=== PATIENT | female | born 2000 | race Caucasian/White ===

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

== ENCOUNTER 2023-04-18 22:00 | Emergency (ER) | payer BC ==
[~2023-04-18] VITALS: Ht 167.6 cm; Wt 68.6 kg
[~2023-04-18 22:00] MED LIST: PREDNISONE20 MG PO
[2023-04-18 22:05] VITALS: TEMP 98.4
[2023-04-18] MEDS ORDERED: Mag/Al Hydrox/Simeth Susp 30 ML CUP PO ONE (22:30)
[2023-04-18] MEDS ORDERED: Acetaminophen Oral Susp 325 MG/10.15 ML UD PO ONE (22:30)
[2023-04-18] MEDS ORDERED: Ketorolac 15 MG/ML VIAL IV ONE (22:30)
[2023-04-18] MEDS ORDERED: NS 1,000 ML IV ONE (22:30)
[2023-04-18 22:33] LABS: BASO % 0.1 % (0.0-2.0); EOS % 0.1 % (0.0-4.0); GRAN # 5.9 K/mm3 (1.4-6.5); GRAN % 84.9 % (42.2-75.2); HEMOGLOBIN 12.7 g/dl (12.5-16.0); LYMPH # 0.6 K/mm3 (1.2-3.4); LYMPH % 8.6 % (20.0-51.0); MEAN CELL VOLUME 84 fl (80.0-100.0); MEAN CORPUSCULAR HEMOGLOBIN 30 pg (27-31); MEAN CORPUSCULAR HGB CONC 36 g/dl (33.0-37.0); MEAN PLATELET VOLUME 11.5 fl (7.4-10.4); MONO # 0.4 K/mm3 (0.1-0.6); PLATELET COUNT 187 K/mm3 (130-400); RED BLOOD COUNT 4.18 M/mm3 (4.10-5.30); REDCELL DISTRIBUTION WIDTH-CV 12.1 % (11.5-14.5)
[2023-04-18 22:35] LABS: HEMATOCRIT 35.3 % (37.0-47.0); INR 1.1 (0.8-3.0); PROTHROMBIN TIME 12.2 SECONDS (9.7-12.8)
[2023-04-18 22:48] LABS: ALANINE AMINOTRANSFERASE 7 U/L (0-55); ALBUMIN 3.8 gm/dL (3.5-5.0); ALKALINE PHOSPHATASE 59 U/L (40-150); ANION GAP 13 mmol/L (7-16); AST,SGOT 15 U/L (5-34); BILIRUBIN,TOTAL 0.5 mg/dL (0.2-1.2); BLOOD UREA NITROGEN 5 mg/dL (7-19); CALCIUM 9.4 mg/dL (8.4-10.2); CARBON DIOXIDE 18 mmol/L (22-29); CHLORIDE 104 mmol/L (98-107); CREATININE, serum 0.68 mg/dL (0.57-1.11); GLUCOSE 93 mg/dL (70-99); LIPASE 8 U/L (8-78); MAGNESIUM 1.7 mg/dL (1.6-2.6); POTASSIUM 3.6 mmol/L (3.5-4.5); SODIUM 135 mmol/L (136-145); TOTAL PROTEIN 6.6 gm/dL (6.2-8.1)
[2023-04-18 22:58] LABS: TROPONIN-I < 0.010 ng/mL (0.00-0.033)
[2023-04-18 23:37] LABS: COLLECTION METHOD CLEAN CATCH
[2023-04-18 23:40] LABS: PH 5.5 (5.0-8.5); URINE APPEARANCE CLEAR (CLEAR/HAZY); URINE BLOOD NEGATIVE (NEGATIVE); URINE COLOR YELLOW (YELLOW); URINE GLUCOSE NEGATIVE (NEGATIVE); URINE KETONE 2+ (NEGATIVE); URINE NITRATE NEGATIVE (NEGATIVE); URINE PROTEIN(semi-quant) NEGATIVE (NEGATIVE)
[2023-04-19 00:02] LABS: TRICYCLIC ANTIDEPRESS URINE NEGATIVE (NEGATIVE)
[2023-04-19] MEDS ORDERED: PEPCID 20MG TAB20 MG PO (01:16)
[2023-04-19 01:30] VITALS: BP 97/69; PULSE 81
== END 2023-04-19 01:30 | disposition home or self-care (01) ==
LOC: COL.ER 22:00
PROVIDERS: Internal Medicine
DX: O99.611 Diseases of the digestive system complicating pregnancy, first trimester (principal); K21.9 Gastro-esophageal reflux disease without esophagitis; K29.00 Acute gastritis without bleeding; Z3A.10 10 weeks gestation of pregnancy
CPT/HCPCS: J7030

== ENCOUNTER 2023-11-12 02:20 | Inpatient (IN) | payer BC ==
[~2023-11-12] VITALS: Ht 167.6 cm; Wt 90.5 kg
[2023-11-12] VITALS (22 sets, daily range): BP systolic 101–131; BP diastolic 46–89; PULSE 86–109; TEMP 98–98.3
[~2023-11-12 02:20] MED LIST changes: +PEPCID 20MG TAB20 MG PO
[2023-11-12] MEDS ORDERED: LR 1,000 ML IV PRN (03:00)
--- NOTE | 2023-11-12 03:30 | NUR ---
DR CHI NOTIFIED PT PRESENTS TO L&D WITH C/O CTX'S SINCE 29, 3-4 MINS APART, INTACT, FHR CATEGORY 1, SVE 3/80/-2. ORDERS TO ADMIT AND PT MAY HAVE EPIDURAL.
[2023-11-12] MEDS ORDERED: LR 1,000 ML IV SCH (03:45)
[2023-11-12] MEDS ORDERED: LR & Oxytocin 500 ML IV SCH (04:15)
[2023-11-12 04:19] LABS: BASO % 0.1 % (0.0-2.0); EOS # 0.1 K/mm3 (0.0-0.7); EOS % 0.7 % (0.0-4.0); GRAN # 11.4 K/mm3 (1.4-6.5); GRAN % 80.7 % (42.2-75.2); HEMOGLOBIN 11.9 g/dl (12.5-16.0); LYMPH # 1.6 K/mm3 (1.2-3.4); LYMPH % 11.6 % (20.0-51.0); MEAN CELL VOLUME 86 fl (80.0-100.0); MEAN CORPUSCULAR HEMOGLOBIN 29 pg (27-31); MEAN CORPUSCULAR HGB CONC 34 g/dl (33.0-37.0); MEAN PLATELET VOLUME 11.3 fl (7.4-10.4); MONO # 0.9 K/mm3 (0.1-0.6); MONO % 6.4 % (1.7-9.3); PLATELET COUNT 248 K/mm3 (130-400); RED BLOOD COUNT 4.12 M/mm3 (4.10-5.30); REDCELL DISTRIBUTION WIDTH-CV 13.1 % (11.5-14.5)
[2023-11-12 04:22] LABS: HEMATOCRIT 35.3 % (37.0-47.0)
[2023-11-12] MEDS ORDERED: ROPivacaine PF 0.2% 200 ML IV ONE (04:32)
[2023-11-12] MEDS ORDERED: diphenhydrAMINE 25 MG CAP PO PRN (05:00)
[2023-11-12] MEDS ORDERED: ePHEDrine 50 MG/10 ML VIAL IV PRN (05:00)
[2023-11-12] MEDS ORDERED: diphenhydrAMINE 50 MG/ML 1 ML VIAL IV PRN (05:00)
[2023-11-12] MEDS ORDERED: Naloxone 0.4 MG/ML VIAL IV PRN ×2 (05:00→11:00)
[2023-11-12] MEDS ORDERED: Ondansetron 4 MG/2 ML VIAL IV PRN (05:00)
--- NOTE | 2023-11-12 06:45 | NUR ---
BARBARA HUNTER CAME ON SHIFT AT 0615 AND REPOSITIONED PT TO LL WITH PEANUT BALL IN PLACE. RN DISCUSSES POC WITH PT AND PT VERBALIZES UNDERSTANDING AND HAS NO QUESTIONS AT THIS TIME.
--- NOTE | 2023-11-12 07:35 | NUR ---
SVE PERFORMED, BLOODY SHOW NOTED. PERICARE PERFORMED AND PADS CHANGED. POSITION CHANGED WITH HELP OF RN TO RIGHT LATERAL WITH PEANUT BALL IN PLACE. PT STATES SHE IS COMFORTABLE WITH EPIDURAL, NOT FEELING PAIN/PRESSURE. MD UPDATED AT 0715 (SEE PHYSICIAN NOTIFICATION).
--- NOTE | 2023-11-12 09:15 | NUR ---
POSITION CHANGED TO HIGH TAILORS
--- NOTE | 2023-11-12 09:40 | NUR ---
0920 MERLE WILCOX BEDSIDE, VISUALIZES STRIP. SVE PERFORMED AND PROVIDER AROM WITH CLEAR FLUID. ORDERS TO RECHECK PT AROUND [id number]. RN RBVO.
[2023-11-12] MEDS ORDERED: Witch Hazel 50% Pads Bulk TUB TP PRN (11:00)
[2023-11-12] MEDS ORDERED: Ibuprofen 600 MG TAB PO SCH (11:00)
[2023-11-12] MEDS ORDERED: Acetaminophen 500 MG TAB PO SCH (11:00)
[2023-11-12] MEDS ORDERED: Phenylephrine/Mineral Oil/Petrolatum 57 GM TUBE RC PRN (11:00)
[2023-11-12] MEDS ORDERED: Mag/Al Hydrox/Simeth Susp 30 ML CUP PO PRN (11:00)
[2023-11-12] MEDS ORDERED: Measles/Mumps/Rubella Virus Vaccine Live w Diluent 0.5 ML VIAL SQ SCH (11:00)
[2023-11-12] MEDS ORDERED: oxyCODONE 5 MG TAB PO PRN (11:00)
[2023-11-12] MEDS ORDERED: Magnes Hydrox (MOM) 80 MG/ML 30 ML CUP PO PRN (11:00)
[2023-11-12] MEDS ORDERED: Loratadine 10 MG TAB PO PRN (11:00)
--- NOTE | 2023-11-12 11:17 | NUR ---
SEE PHYSICIAN NOTIFICATION
--- NOTE | 2023-11-12 11:20 | NUR ---
RN BEDSIDE PUSHING WITH PT, MERLE ON WAY FOR DELIVERY
--- NOTE | 2023-11-12 14:39 | NUR ---
1420 RN ASSISTS PT TO BATHROOM VIA SIT TO STAND. PT UNABLE TO AVOID. MADDIE CARE PERFORMED AND PT MOVED TO
[2023-11-12] MEDS ORDERED: Sennosides/Docusate 8.6-50 MG TAB PO SCH (17:00)
[2023-11-12] MEDS ORDERED: guaiFENesin/Dextromethorphan Oral Soln 200-20 MG/10 ML UD PO PRN (20:30)
[2023-11-12] MEDS ORDERED: traZODone 50 MG TAB PO PRN (21:00)
[2023-11-13 00:30] VITALS: BP 123/72; PULSE 88; TEMP 98.1
[2023-11-13 03:51] VITALS: BP 118/70; PULSE 86; TEMP 98.2
[2023-11-13 06:46] VITALS: BP 125/76; PULSE 130; TEMP 98.5
[2023-11-13] MEDS ORDERED: IBU600 MG PO (08:26)
--- NOTE | 2023-11-13 09:59 | NUR ---
Initial visit; Patient and her thanked Size Painter for offering congratulations and God's blessings for the of their son. Size Painter thanked family for choosing [facility] and was happy to hear that their stay here has been very satisfactory.
--- NOTE | 2023-11-13 15:27 | NUR ---
PT AND PT SPOUSE UNDERSTANDING AND SIGN DISCHARGE PAPERWORK, AMBULATED OFF UNIT WITH GALLO MARTINEZ PEARL MAKER.
== END 2023-11-13 15:27 | disposition home or self-care (01) | DRG 807 ==
LOC: LDRO 02:20 → LDR 03:30 → OB 03:30
PROVIDERS: Obstetrics & Gynecology; ADMIT Obstetrics & Gynecology
PROC: 10E0XZZ Delivery of Products of Conception, External Approach (ICD-10-PCS; principal; 2023-11-12)
PROC: 0KQM0ZZ Repair Perineum Muscle, Open Approach (ICD-10-PCS; 2023-11-12)
DX: O99.02 Anemia complicating childbirth (principal); Z37.0 Single live birth; Z3A.39 39 weeks gestation of pregnancy; O99.344 Other mental disorders complicating childbirth; F41.8 Other specified anxiety disorders; O70.1 Second degree perineal laceration during delivery; O69.89X0 Labor and delivery complicated by other cord complications, not applicable or unspecified; O76 Abnormality in fetal heart rate and rhythm complicating labor and delivery; Z23 Encounter for immunization
CPT/HCPCS: J2590; J2795; J7120